=== PATIENT | female | born 2000 | race Caucasian/White ===

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

== ENCOUNTER → 2020-01-26 | Outpatient (CLI) | payer OTHER | LOC: M WHC 15:45 | PROVIDERS: ATTEND Advanced Practice Midwife | DX: O99.212 Obesity complicating pregnancy, second trimester (principal); Z53.9 Procedure and treatment not carried out, unspecified reason ==

== ENCOUNTER → 2020-02-16 | Outpatient (CLI) | payer OTHER ==
--- NOTE | 2020-02-16 19:30 | REP ---
Clinical: Anatomical evaluation. Comparison: 11/22/2019 . Findings: Examination demonstrates a single live intrauterine in transverse presentation. motion is identified by technologist. Placenta is noted anterior and grade I without evidence for placenta previa or abruption. Amniotic fluid volume is normal. Cervix measures 4.0 cm in length and appears closed. No evidence for nuchal cord. Gestational age by LMP 19 weeks 0 days with KELLY 07/12/2020 . Gestational age by current measurements 19 weeks 0 days with KELLY 07/12/2020 . FHR equals 161 beats per minute. BPD 4.1 cm 18 weeks 4 days HC 16.1 cm 18 weeks 6 days AC 13.9 cm 19 weeks 2 days FL 3.2 cm 20 weeks 0 days HL 3.2 cm 20 weeks 4 days HC/AC ratio 1.16 Estimated weight 293 grams ( 64th percentile). Anatomical assessment demonstrates normal structures including cranium, choroid plexus, cavum, cerebellum/posterior fossa, lungs, four-chamber heart/ventricular outflow tracts, diaphragm, stomach, cord insertion/three-vessel cord, kidneys/bladder, spine, and extremities. Limited evaluation of the facial features due to positioning. Echogenic focus in the left cardiac ventricle likely prominent chordae tendineae. Impression: 1. Single live intrauterine demonstrating appropriate interval growth. 2. Hypoechoic ovoid structure in the placenta measuring 2.1 x 1.0 x 1.4 cm which may represent venous hoang. 3. Limited evaluation of the facial features and prominent chordae tendineae may warrant reevaluation and follow-up.
== END ==
LOC: M WHC 15:00
PROVIDERS: ATTEND Advanced Practice Midwife
DX: O99.212 Obesity complicating pregnancy, second trimester (principal); Z3A.19 19 weeks gestation of pregnancy

== ENCOUNTER → 2020-02-29 | Outpatient (CLI) | payer OTHER ==
--- NOTE | 2020-02-29 23:55 | REP ---
REASON: Followup anatomy. Multiple ultrasonographic images of the gravid uterus show a single living intrauterine gestation in the head to maternal right position. Doppler interrogation of the heart shows a heart rate of 144 beats per minute. Placenta is anterior and not low lying. The cervix measures 3.5 cm in length, closed. The subjective amniotic fluid volume within normal limits. Once again, there is an unchanged hypoechoic structure seen near the cord insertion, which measures 2.4 x 0.9 x 2.1 cm. CHART: BPD 5.0 cm = 21 weeks 2 days HC 18.8 cm = 21 weeks 0 days AC 16.7 cm = 21 weeks 5 days FL 3.6 cm = 21 weeks 3 days The estimated weight is 430 grams, which is at the 68th percentile for a 20-week 6-day gestational age. upper lip was seen to be within normal limits. IMPRESSION: Single living intrauterine gestation, as described above, with an estimated gestational age of 21 weeks 1 day via composite criteria and an estimated date of delivery of 07/10/2020 by today's exam. No anomalies were detected. The hypoechoic area seen adjacent to the cord insertion likely represents a venous hoang. It is unchanged. Continue followup is suggested.
== END ==
LOC: M WHC 15:39
PROVIDERS: ATTEND Advanced Practice Midwife
DX: Z34.02 Encounter for supervision of normal first pregnancy, second trimester (principal); Z36.2 Encounter for other antenatal screening follow-up; Z3A.21 21 weeks gestation of pregnancy

== ENCOUNTER → 2020-05-17 | Outpatient (CLI) | payer OTHER ==
[~2020-05-17] MED LIST changes: +PRENTAB9 PO
[2020-05-17 19:11] LABS: HEMOGLOBIN 10.7 g/dl (12.0-15.5); MEAN CORPUSCULAR HEMOGLOBIN 27.1 pg (27.0-33.0); MEAN CORPUSCULAR HGB CONC 31.5 g/dl (32.0-36.5); MEAN CORPUSCULAR VOLUME 86.1 fl (80.0-96.0); PLATELET COUNT, AUTOMATED 214 10^3/uL (150-450); RED BLOOD COUNT 3.95 10^6/uL (4.00-5.40); WHITE BLOOD COUNT 10.3 10^3/uL (4.0-10.0)
== END ==
LOC: M PLALAB 13:00
PROVIDERS: ATTEND Advanced Practice Midwife
DX: Z34.83 Encounter for supervision of other normal pregnancy, third trimester (principal); Z36.89 Encounter for other specified antenatal screening

== ENCOUNTER → 2020-06-14 | Outpatient (REF) | payer OTHER | LOC: M SFHCWAGY 17:20 | PROVIDERS: ATTEND Advanced Practice Midwife | DX: Z34.03 Encounter for supervision of normal first pregnancy, third trimester (principal); Z3A.00 Weeks of gestation of pregnancy not specified ==

== ENCOUNTER 2020-07-13 08:07 | Inpatient (IN) | payer OTHER ==
[2020-07-13] VITALS (28 sets, daily range): BP systolic 118–140; BP diastolic 58–98
[~2020-07-13] VITALS: Ht 167.6 cm; Wt 129.0 kg
[~2020-07-13 08:07] MED LIST changes: -PRENTAB9 PO
[2020-07-13] MEDS ORDERED: LACTATED RINGER'S 1000 ML IV STA (08:27)
[2020-07-13] MEDS ORDERED: PRENTAB9 PO (08:30)
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
[2020-07-13] MEDS ORDERED: miSOPROStol 50 MCG 1/2 TAB (S0191) PO ONE ×2 (09:45→14:30)
[2020-07-13 10:01] LABS: HEMATOCRIT 34.1 % (36.0-47.0); HEMOGLOBIN 10.8 g/dl (12.0-15.5); MEAN CORPUSCULAR HEMOGLOBIN 26.7 pg (27.0-33.0); MEAN CORPUSCULAR HGB CONC 31.7 g/dl (32.0-36.5); MEAN CORPUSCULAR VOLUME 84.2 fl (80.0-96.0); PLATELET COUNT, AUTOMATED 208 10^3/uL (150-450); RED BLOOD COUNT 4.05 10^6/uL (4.00-5.40); WHITE BLOOD COUNT 7.5 10^3/uL (4.0-10.0)
--- NOTE | 2020-07-13 14:33 | IPNPDOC ---
Text Note Date of Service The patient was seen on 07/13/20. NOTE Progress Mild irregular UC not perceived by patient Cat I tracing SVE /-[address] cook's catheter. Procedure discontinued due to patient inability to tolerate sensations. Repeat misoprostol. Will attempts cook's again in 4 hours. VS,Fishbone, I+O VS, Fishbone, I+O Laboratory Tests 07/13/20 09:37 Vital Signs Date Time Temp Pulse Resp B/P (MAP) Pulse Ox O2 Delivery O2 Flow Rate FiO2 07/13/20 10:48 92 16 122/59 (80) 07/13/20 08:26 97.8 Dee Dee Calloway CNM Jul 13, 2020 14:33
[2020-07-13] MEDS: LR 1,000 ML IV SCH (18:43)
--- NOTE | 2020-07-13 18:43 | IPNPDOC ---
Text Note Date of Service The patient was seen on 07/13/20. NOTE Progress Pt and mother have decided to request epidural for pain management for labor. Reviewed process of insertion and administration. Will start low dose pitocin and recheck dilation once comfortable. Consider cooks catheter pending dilation. Cat I tracing. Mild irregular UC. VS,Fishbone, I+O VS, Fishbone, I+O Laboratory Tests 07/13/20 09:37 Vital Signs Date Time Temp Pulse Resp B/P (MAP) Pulse Ox O2 Delivery O2 Flow Rate FiO2 07/13/20 14:59 97.1 105 128/84 (99) 07/13/20 12:50 16 Dee Dee Calloway CNM Jul 13, 2020 18:43
[2020-07-13] MEDS ORDERED: OXYTOCIN DRIP 30 UNITS in IV 1 EA IV SCH (18:45)
[2020-07-13 19:38] LABS: AMPHETAMINES URINE REFLEX NEGATIVE (NEGATIVE); BARBITURATES URINE REFLEX NEGATIVE (NEGATIVE); BENZODIAZEPINES URINE REFLEX NEGATIVE (NEGATIVE); CANNABINOIDS URINE REFLEX NEGATIVE (NEGATIVE); COCAINE METABOLITE URINE REFLE NEGATIVE (NEGATIVE); METHADONE URINE REFLEX NEGATIVE (NEGATIVE); OPIATES URINE REFLEX NEGATIVE (NEGATIVE); PHENCYCLIDINE URINE REFLEX NEGATIVE (NEGATIVE)
[2020-07-13] MEDS ORDERED: FENTANYL 2MCG/ML ROPIVACAINE 0.2% IN 0.9% NACL 100ML IVBAG As Ordered ONE (20:50)
[2020-07-13] MEDS ORDERED: LACTATED RINGER'S 1000 ML IV PRN (22:45)
[2020-07-13] MEDS ORDERED: diphenhydrAMINE 50MG/ML VIAL (J1200) IV PRN (22:45)
[2020-07-13] MEDS ORDERED: NALOXONE INJ 0.4MG/1ML VIAL (J2310 PER 1MG) IV PRN (22:45)
[2020-07-13] MEDS ORDERED: EPIDURAL COMMENT XX SCH (22:45)
[2020-07-13] MEDS ORDERED: ePHEDrine SULFATE 25 MG/5 ML(5MG/ML) SYRINGE IV PRN (22:45)
[2020-07-13] MEDS: FENTANYL/ROPIVACAINE/NACL BAG 100 ML EPIDURAL SCH (22:45)
[2020-07-13] MEDS ORDERED: REFRIGERATOR IV KEYS XX PRN (22:45)
[2020-07-13] MEDS ORDERED: EPIDURAL/PCA KEYS XX PRN (22:45)
[2020-07-13] MEDS ORDERED: ONDANSETRON 4MG/2ML VIAL IV PRN (22:45)
--- NOTE | 2020-07-13 23:06 | IPNPDOC ---
Text Note Date of Service The patient was seen on 07/13/20. NOTE Progress Comfortable with epidural Pitocin @ 4mu UC Q 2 minutes, mild FH Cat I SVE 2/80/-1, midplane Cook's catheter placed without difficulty, inflated with 60cc/40cc NS Pt tolerated procedure well. VS,Fishbone, I+O VS, Fishbone, I+O Laboratory Tests 07/13/20 09:37 Vital Signs Date Time Temp Pulse Resp B/P (MAP) Pulse Ox O2 Delivery O2 Flow Rate FiO2 07/13/20 18:32 98.1 115 134/82 (99) 07/13/20 16:04 16 Dee Dee Calloway CNM Jul 13, 2020 23:06
[2020-07-14] VITALS (42 sets, daily range): BP systolic 103–148; BP diastolic 54–83
[2020-07-14] MEDS: LR 1,000 ML IV SCH ×3 (02:43→16:15)
--- NOTE | 2020-07-14 06:46 | IPNPDOC ---
Text Note Date of Service The patient was seen on 07/14/20. NOTE Progress remains comfortable with epidural Pitocin currently @ 2mu overnight UC Q 3 minutes, mild FH 145, episode of Cat II, primarily Cat I at this time SVE - cooks catheter sitting in vagina /-2, anterior Continue induction VS,Fishbone, I+O VS, Fishbone, I+O Laboratory Tests 07/13/20 09:37 Vital Signs Date Time Temp Pulse Resp B/P (MAP) Pulse Ox O2 Delivery O2 Flow Rate FiO2 07/14/20 02:21 93 126/65 (85) 07/13/20 18:32 98.1 07/13/20 16:04 16 I&O- Last 24 Hours up to 6 AM 07/14/20 06:00 Intake Total 700 ml Output Total 650 ml Balance 50 ml Dee Dee Calloway CNM Jul 14, 2020 06:46
[2020-07-14] MEDS: FENTANYL/ROPIVACAINE/NACL BAG 100 ML EPIDURAL SCH ×2 (07:45→18:00)
--- NOTE | 2020-07-14 11:48 | IPNPDOC ---
Obstetrical Progress Note Date of Service Jul 14, 2020 Subjective Pt comfortable with epidural. Has undergone successful cervical ripening with both Misoprostol and Pit/Cook balloon. No LOF/VB. Objective Vital Signs Date Time Temp Pulse Resp B/P (MAP) Pulse Ox O2 Delivery O2 Flow Rate FiO2 07/14/20 09:50 114/59 (77) 07/14/20 09:20 79 16 07/14/20 07:20 98.2 Assessment Heart Rate Tracing: Category I (short periods of Cat II. FSE and IUPC placed) Tocometer Frequency: regular, every 2-5 min. (Pit at 10mU/min) Sterile Vaginal Examination Dilation: 5 cm Effacement (%): 80% Station: -1, 0 Cervical Consistency: Soft Cervical Position: Anterior Postion/Presentation: Cephalic presentation Assessment and Plan Age: 20 : 1 Term: 1 Pre-term: 0 Abortions: 0 Livin EGA at Admission: 40.1 Status: Reassuring Group B Streptococcus: Negative Anticipate: Vaginal Delivery Additional Comments Continue with Pitocin. TERESA OTTO DO Jul 14, 2020 11:48
[2020-07-14 18:34] LABS: CORD GAS ABE A -6.4; CORD GAS ABE V -3.8; CORD GAS HCO3 A 24.2 MEQ/L; CORD GAS HCO3 V 20.8 MEQ/L; CORD GAS O2 SAT V 99.8 %; CORD GAS PCO2 V 36.5 mmHg; CORD GAS PH A 7.139 UNITS; CORD GAS PH V 7.373 UNITS; CORD GAS PO2 A 33.8 mmHg; CORD GAS PO2 V 140.3 mmHg; CORD GAS SBC A 18.5 MEQ/L; CORD GAS SBC V 21.4 MEQ/L; CORD GAS TCO2 A 26.5 MEQ/L; CORD GAS TCO2 V 21.9 MEQ/L
[2020-07-14] MEDS ORDERED: OXYTOCIN DRIP 30 UNITS in IV 1 EA IV SCH (18:49)
[2020-07-14] MEDS ORDERED: LR 1,000 ML IV SCH (18:49)
--- NOTE | 2020-07-14 18:49 | DNPDOC ---
[facility] Delivery Note Delivery Note DATE OF DELIVERY: 07/14/2020 TIME OF DELIVERY: 181 Spontaneous vaginal delivery. CORRECTIONAL OFFICER: Dr. Dean Leiva DO FACOG ANESTHESIA: Epidural. LACERATION: Second-degree ESTIMATED BLOOD LOSS: 200 mL. FINDINGS: 8 pound 6 ounce (3810g) female , Score, 8 and 9. DELIVERY SUMMARY: The active phase and second stage of labor progressed in normal fashion.. She received Pitocin augmentation throughout her labor course. The head delivered in the CORDELL position, and restituted LOT. A loose nuchal cord was noted which was reduced after delivery. The anterior shoulder delivered with gentle downward guidance and the remainder of the body delivered with ease. The baby was placed on the patient's chest. Delayed cord clamping occurred for approximately 1 minute. The cord was then doubly clamped and cut. IV Pitocin was bolused to actively manage the third stage of labor. The placenta delivered intact without any difficulty within 10 minutes of delivery. The uterine fundus was noted to be firm and 2 cm below the umbilicus. The cervix, vagina, vulva an d perineum were inspected. A second-degree laceration was noted and immediately repaired with 3-0 Vicryl in typical fashion. Excellent hemostasis was noted. Sponge, needle and instrument counts were correct per protocol. DO DENZEL Soto JONATHAN R. DO Jul 14, 2020 18:49
[2020-07-14] MEDS ORDERED: MEASLES,MUMPS,RUBELLA VACCINE INJ (MMR-II) (90707) SC SCH (19:00)
[2020-07-14] MEDS ORDERED: IBUPROFEN 600MG TAB PO PRN (19:00)
[2020-07-14] MEDS ORDERED: RHOGAM 300 MCG (1500 IU) INJ (J2790) IM SCH (19:00)
[2020-07-14] MEDS ORDERED: PROMETHAZINE 25 MG TAB PO PRN (19:00)
[2020-07-14] MEDS ORDERED: DOCUSATE SODIUM 100 MG CAP PO PRN (19:00)
[2020-07-14] MEDS ORDERED: ACETAMINOPHEN TAB 650MG DOSE (2X325MG) PO PRN (19:00)
[2020-07-14] MEDS ORDERED: ONDANSETRON 4MG/2ML VIAL IV PRN (19:00)
[2020-07-14] MEDS ORDERED: ACETAMINOPHEN 500 MG TAB PO PRN (19:00)
[2020-07-14] MEDS ORDERED: DIBUCAINE 1% OINTMENT 30GM TOP PRN (19:00)
[2020-07-14] MEDS: IBUPROFEN 800 MG TAB PO PRN (20:20)
[2020-07-15] MEDS: IBUPROFEN 800 MG TAB PO PRN ×2 (05:31→17:22)
[2020-07-15 06:00] VITALS: BP 109/58
[2020-07-15] MEDS: PRENATAL VITAMINS CHEWABLE TABLET PO SCH (08:03)
--- NOTE | 2020-07-15 10:22 | IPNPDOC ---
Progress Note Date of Service: Jul 15, 2020 Day#: 1 Progress Note SUBJECT: Status post . She has been ambulating, voiding spontaneously without issue and tolerating regular diet. Lochia decreasing/minimal. Patient is ambulating well. OBJECTIVE: VITAL SIGNS: Within normal limits, afebrile. Alert and oriented times three. Abdomen: Fundus firm at U-2. Soft, NTTP. ASSESSMENT: Status post uncomplicated spontaneous vaginal delivery. Vitals within normal limits, afebrile, hemodynamically stable with no evidence of infection. PLAN: Discharge to home tomorrow Tylenol and Motrin for pain. Routine instructions/precautions reviewed. Routine PP visit in 6 weeks in clinic. VS, I&O, 24H, Fishbone Vital Signs/I&O Vital Signs Date Time Temp Pulse Resp B/P (MAP) Pulse Ox O2 Delivery O2 Flow Rate FiO2 07/15/20 06:00 97.9 87 18 109/58 (75) I&O- Last 24 Hours up to 6 AM 07/15/20 06:00 Intake Total 6189 ml Output Total 2300 ml Balance 3889 ml Laboratory Data 24H LABS Laboratory Tests 2 07/14/20 18:28: Cord Arterial Blood pH 7.139, Cord Arterial Blood PCO2 73.0, Cord Arterial Blood PO2 33.8, Cord Arterial Blood HCO3 24.2, Cord Arterial Blood Total CO2 26.5, Cord Arterial Blood Base Excess -6.4, Cord Arterial Base Excess (Standard 18.5, Cord Arterial Bld Oxygen Saturation 59.0, Cord Venous Blood pH 7.373, Cord Venous Blood PCO2 36.5, Cord Venous Blood PO2 140.3, Cord Venous Blood HCO3 20.8, Cord Venous Blood Total CO2 21.9, Cord Venous Base Excess (Actual) -3.8, Cord Venous Base Excess (Standard) 21.4, Cord Venous Blood Oxygen Saturation 99.8 TERESA OTTO DO Jul 15, 2020 10:22
[2020-07-15 18:25] VITALS: BP 121/67
[2020-07-16] MEDS: IBUPROFEN 800 MG TAB PO PRN (05:11)
[2020-07-16 05:26] VITALS: BP 109/63
--- NOTE | 2020-07-16 08:21 | IPNPDOC ---
Progress Note Date of Service: Jul 16, 2020 Day#: 2 Progress Note SUBJECT: Status post . She has been ambulating, voiding spontaneously without issue and tolerating regular diet. Lochia decreasing/minimal. Patient is ambulating well. OBJECTIVE: VITAL SIGNS: Within normal limits, afebrile. Alert and oriented times three. Abdomen: Fundus firm at U-2. Soft, NTTP. ASSESSMENT: Status post uncomplicated spontaneous vaginal delivery. Vitals within normal limits, afebrile, hemodynamically stable with no evidence of infection. PLAN: Discharge to home today. Tylenol and Motrin for pain. Routine instructions/precautions reviewed. Routine PP visit in 6 weeks in clinic. VS, I&O, 24H, Fishbone Vital Signs/I&O Vital Signs Date Time Temp Pulse Resp B/P (MAP) Pulse Ox O2 Delivery O2 Flow Rate FiO2 07/16/20 05:26 97.9 74 16 109/63 (78) 97 Room Air TERESA OTTO DO Jul 16, 2020 08:21
[2020-07-16] MEDS: PRENATAL VITAMINS CHEWABLE TABLET PO SCH (09:35)
== END 2020-07-16 12:00 | disposition home or self-care (01) | DRG 560 ==
LOC: M LDI 08:07 → M OBS 07-14 20:20
PROVIDERS: ADMIT Advanced Practice Midwife; ATTEND Obstetrics & Gynecology
PROC: 3E0P7GC Introduction of Other Therapeutic Substance into Female Reproductive, Via Natural or Artificial Opening (ICD-10-PCS; 2020-07-13)
PROC: 10E0XZZ Delivery of Products of Conception, External Approach (ICD-10-PCS; principal; 2020-07-14)
PROC: 0KQM0ZZ Repair Perineum Muscle, Open Approach (ICD-10-PCS; 2020-07-14)
DX: O48.0 Post-term pregnancy (principal); Z3A.40 40 weeks gestation of pregnancy; O69.81X0 Labor and delivery complicated by cord around neck, without compression, not applicable or unspecified; O70.1 Second degree perineal laceration during delivery; Z37.0 Single live birth

== ENCOUNTER 2020-12-24 02:05 | Emergency (ER) | payer MEDICAID, OTHER ==
[~2020-12-24] VITALS: Ht 162.6 cm; Wt 127.3 kg
[~2020-12-24 02:05] MED LIST changes: +BUPR150T12 PO; -BUPR150T3 PO; +GABA-282 PO; -GABA-843 PO; +PRENTAB9 PO
[2020-12-24 03:25] LABS: HEMATOCRIT 40.2 % (36.0-47.0); HEMOGLOBIN 12.7 g/dl (12.0-15.5); MEAN CORPUSCULAR HEMOGLOBIN 27.5 pg (27.0-33.0); MEAN CORPUSCULAR HGB CONC 31.6 g/dl (32.0-36.5); PLATELET COUNT, AUTOMATED 183 10^3/uL (150-450); RED BLOOD COUNT 4.62 10^6/uL (4.00-5.40); WHITE BLOOD COUNT 7.3 10^3/uL (4.0-10.0)
[2020-12-24 04:03] LABS: ACETAMINOPHEN LEVEL < 2.0 UG/ML (10.0-30.0); ALBUMIN 3.8 GM/DL (3.2-5.2); ALT/SGPT 20 U/L (12-78); BILIRUBIN,DIRECT 0.1 MG/DL (0.0-0.2); BILIRUBIN,TOTAL 0.4 MG/DL (0.2-1.0); BLOOD UREA NITROGEN 10 MG/DL (7-18); CALCIUM LEVEL 8.2 MG/DL (8.5-10.1); CARBON DIOXIDE LEVEL 26 MEQ/L (21-32); CHLORIDE LEVEL 112 MEQ/L (98-107); CREATININE FOR GFR 0.59 MG/DL (0.55-1.30); ETHYL ALCOHOL (ETHANOL) < 0.003 % (0.000-0.010); GLUCOSE, FASTING 90 MG/DL (70-100); SALICYLATE LEVEL < 1.7 MG/DL (5.0-30.0); SODIUM LEVEL 142 MEQ/L (136-145); TOTAL PROTEIN 6.8 GM/DL (6.4-8.2)
[2020-12-24 05:33] LABS: AMPHETAMINES LEVEL URINE NEGATIVE (NEGATIVE); BARBITURATES URINE NEGATIVE (NEGATIVE); BENZODIAZEPINES URINE NEGATIVE (NEGATIVE); CANNABINOIDS URINE NEGATIVE (NEGATIVE); COCAINE METABOLITE URINE NEGATIVE (NEGATIVE); METHADONE URINE NEGATIVE (NEGATIVE); OPIATES URINE NEGATIVE (NEGATIVE); PHENCYCLIDINE URINE NEGATIVE (NEGATIVE)
[2020-12-24 17:14] LABS: RSV AMPLIFICATION NEGATIVE (NEGATIVE)
[2020-12-24 18:50] VITALS: BP 134/78
--- NOTE | 2020-12-25 17:46 | ECGEPIP ---
[facility] - ED Test Date: 2020-12-24 Pat Name: MYRON SALINASANGI Department: Room: - Gender: Female Director Cardiology: : 2000 Requested By: HOANG OSUNA Order Number: [id number] Reading MD: Funmilayo Rae Measurements Intervals [place] Rate: 58 P: 2 MO: 126 QRS: 44 QRSD: 98 T: 32 QT: 416 QTc: 408 Interpretive Statements Sinus bradycardia with sinus arrhythmia NSTTW abnormalities compared 11/29/18 Electronically Signed on 12-25-2020 17:46:21 EDT by Funmilayo Rae
== END 2020-12-24 18:53 ==
LOC: M ED 02:05
DX: F60.3 Borderline personality disorder (principal); R45.851 Suicidal ideations; F32.9 Major depressive disorder, single episode, unspecified; R00.1 Bradycardia, unspecified; I49.9 Cardiac arrhythmia, unspecified; J45.909 Unspecified asthma, uncomplicated; Z91.14 Patient's other noncompliance with medication regimen

== ENCOUNTER 2021-04-22 22:11 | Inpatient (IN) | payer MEDICAID, OTHER ==
[~2021-04-22] VITALS: Ht 167.6 cm; Wt 109.9 kg
[2021-04-22 22:57] LABS: HEMATOCRIT 41.4 % (36.0-47.0); HEMOGLOBIN 13.9 g/dl (12.0-15.5); MEAN CORPUSCULAR HGB CONC 33.6 g/dl (32.0-36.5); MEAN CORPUSCULAR VOLUME 83.5 fl (80.0-96.0); PLATELET COUNT, AUTOMATED 258 10^3/uL (150-450); RED BLOOD COUNT 4.96 10^6/uL (4.00-5.40); WHITE BLOOD COUNT 7.6 10^3/uL (4.0-10.0)
[2021-04-22 23:20] LABS: AMPHETAMINES LEVEL URINE NEGATIVE (NEGATIVE); BARBITURATES URINE NEGATIVE (NEGATIVE); BENZODIAZEPINES URINE NEGATIVE (NEGATIVE); CANNABINOIDS URINE POSITIVE (NEGATIVE); COCAINE METABOLITE URINE NEGATIVE (NEGATIVE); METHADONE URINE NEGATIVE (NEGATIVE); OPIATES URINE NEGATIVE (NEGATIVE); PHENCYCLIDINE URINE NEGATIVE (NEGATIVE)
[2021-04-23 00:02] LABS: ACETAMINOPHEN LEVEL < 2.0 UG/ML (10.0-30.0); ALBUMIN 4.1 GM/DL (3.2-5.2); ALT/SGPT 21 U/L (12-78); BILIRUBIN,DIRECT 0.1 MG/DL (0.0-0.2); BILIRUBIN,TOTAL 0.3 MG/DL (0.2-1.0); BLOOD UREA NITROGEN 11 MG/DL (7-18); CALCIUM LEVEL 8.6 MG/DL (8.5-10.1); CARBON DIOXIDE LEVEL 22 MEQ/L (21-32); CHLORIDE LEVEL 112 MEQ/L (98-107); CREATININE FOR GFR 0.78 MG/DL (0.55-1.30); ETHYL ALCOHOL (ETHANOL) < 0.003 % (0.000-0.010); GLUCOSE, FASTING 91 MG/DL (70-100); HCG, SERUM QUALITATIVE NEGATIVE (NEGATIVE); POTASSIUM SERUM 4.1 MEQ/L (3.5-5.1); SALICYLATE LEVEL 1.8 MG/DL (5.0-30.0); SODIUM LEVEL 142 MEQ/L (136-145); TOTAL PROTEIN 7.2 GM/DL (6.4-8.2)
[2021-04-23] MEDS ORDERED: HOME MED LIST COMPLETE! XX SCH (00:40)
[2021-04-23 01:30] LABS: RSV AMPLIFICATION NEGATIVE (NEGATIVE)
[2021-04-23] MEDS ORDERED: MOM 30ML SUSPENSION UDC PO PRN (01:45)
[2021-04-23] MEDS ORDERED: MAALOX 30 ML SUSP *UDC PO PRN (01:45)
[2021-04-23] MEDS ORDERED: ACETAMINOPHEN TAB 650MG DOSE (2X325MG) PO PRN (01:45)
[2021-04-23] MEDS ORDERED: OLANZapine ORAL DISINTEGRATING TAB 5MG PO PRN (01:45)
[2021-04-23] MEDS ORDERED: traZODone 50 MG TAB PO PRN (01:45)
[2021-04-23] MEDS: NICOTINE 21MG/24HR 1 EA TRANSDERMAL TD SCH (10:38)
--- NOTE | 2021-04-23 14:08 | MHHPEPDOC ---
General Date Of Admission: Apr 22, 2021 Legal Status: 9.39 Chief Complaint "I don't want to be here, I don't even know why I am here.". History of Present Illness HISTORY OF THE PRESENT ILLNESS: Patient is a 20 -year-old single, unemployed , domiciled, , female, who reports "I do not want to be here, I do not know why I am here. Nothing was really going to happen." Patient is a 9[facility] to [facility] after she called a friend who is with another friend, patient stated to her friend/roommate that she had a knife and that she would kill herself. The friend being not in front of her called the police after she had threatened to harm herself, reportedly she stated that she was going to kill her self on or before her birthday. Patient states that she hurts herself every year on her birthday. Appears to be angry with her friend who she reports is often joking about their self harm gestures. States that she and her joke about their coping mechanisms. She is very irritable guarded in mildly hostile in the interview. States several times, "I do not want to be here. " She states that she was recently hospitalized in [place] in December 2020 following substance induced mood disorder. She reports a long history of psychiatric hospitalizations and illnesses. She states that her mother has Munchhausen's by proxy, "I had to be taken out of class every week for therapy but my sister did not because my mother is crazy. And I had to take all kinds of medications because she said I needed it. But I only had ADHD" Patient reports diagnoses of depression, anxiety, ADHD, borderline personality bipolar, CPTSD. Reportedly stopped talking Wellbutrin recently. PER ED REPORT: Pt brought to ED after her friend called 911, pt reportedly called friend and told her she would kill herself and had a knife. PT was apparently upset about her upcoming birthday, stated she would kill herself sometime "before my birthday". PT is initially irritable and guarded in ED, poor eye contact, very guarded and evasive, repeating several times "I'm fine I just wanna go home", pt adds "I'm here because my friend narced on me". PT provides little info, states she lives alone and has admittedly not been compliant with medications or outpt tx, has several prior psych admissions, also prior suicide attempt by overdose. Psychiatric Review of Systems Depression (2 or more weeks): depressed mood, suicidal thoughts Jolie (4 or more days of): irritable/elevated mood, expansive mood, denies Psychosis: denies PTSD: history of trauma Anxiety: gen/non-specific anxiety Past Psychiatric History Previous Psychiatric Diagnosis: depression, anxiety, ADHD, borderline personality bipolar, CPTSD Previous Psychiatric Admissions: Multiple admissions to [facility] last hospitalization December 2020 at [place]. Suicide Attempts: history of overdose, history of Tylenol overdose Psychiatric Follow-up: No current therapist or provider. Psychiatric medications: No current medication. Past Medical History Head Injury: No Seizures: No Hospitalizations: Yes Surgeries: No Addiction History nicotine Social History Childhood: Reports a very traumatic childhood, states her mother had possible Munchhausen's disorder by proxy, she [facility] Abuse/Trauma: CPTSD. Current Living Situation: Lives alone, unclear whether or not she has a roommate Education: Unknown. Employment: Unemployed. Social Support: Friends/roommate. Legal: None. Marital: Single. Mental Status Examination General Appearance: disheveled, appears stated age, hospital scubs/clothing Build: overweight Demeanor: hostile, mistrustful, guarded Eye Contact: avoidant Activity: agitated Behavior: withdrawn Speech: clear, other (Angry) Mood: anxious, irritable Affect: flat, labile Thought Process: logical/linear Thought Content (Delusions): none reported Thought Content (Other): guarded Thought Content (Aggressive): none reported Perception (Hallucinations): none reported Perception (Other): none reported Cognition (Impairment of): none reported Cognition(Intelligence Est.): borderline Oriented: Awake, Alert, Oriented times three Insight: fair, poor Judgment: Fair, Poor Psychosis: Denies Diagnoses Unspecified depressive disorder A-FIB/CHADSVASC A-FIB History Current/History of A-Fib/PAF?: No Current PO Anticoag Therapy: No Assessment Patient is a 20 year old Single, Unemployed, Domiciled, Female who was brought to [facility] after she called her friend (the friend was with another friend) and stated that she had a knife and was doing to hurt herself before her birthday. Patient reports no stressor or trigger but reports a diagnosis of Bipolar, Borderline personality disorder, ADHD, PTSD, History of Cannabis Use, History of Tobacco Use, ODD per hx. Patient is extremely irritable and hostile in the interview and displaying symptoms of Emotional Dysregulation. Patient demands to be discharged to home, states that she is not suicidal at this time. She is reporting "Borderline Personality Disorder" and appears to be purposefully being hostile and irritable during psychiatric interview. According to her last admission, she was disengaged in the treatment and did not participate in her treatment care. Patient will probably be discharged later in the week as she admits to a long history of poor compliance in inpatient psychiatry and outpatient services and it may be counter-productive to keep patient inpatient when she is not willing to take medications or utilize any of the supportive therapies. Initial Treatment Plan 1. Patient was admitted on a [9.39] status. 2. Complete history was obtained. 3. With patients permission, family will be contacted and database will be expanded. 4. Patients medication regimen will be reviewed and changed accordingly. 5. Patient will be provided with protected environment. 6. Patient will be treated with individual, group, and milieu therapies. 7. Patient will receive supportive psych-education. 8. Discharge planning will commence immediately. 9. Outpatient follow-up treatment will be strongly recommended. 10. The initial treatment plan will focus initially on: * Depression. * Risk for suicide. ESTIMATED LENGTH OF STAY: 1-3 DAYS. TIME SPENT COUNSELING AND COORDINATING INITIAL CARE: 60 minutes. N/A-No Antipsychotics Vital Signs Vital Signs Date Time Temp Pulse Resp B/P (MAP) Pulse Ox O2 Delivery O2 Flow Rate FiO2 04/22/21 23:34 97.5 69 18 105/63 (77) 100 Room Air Laboratory Data 24H Labs Laboratory Tests 2 04/22/21 22:32: Nucleated Red Blood Cells % (auto) 0.0, Anion Gap 8, Calcium Level 8.6, Total Bilirubin 0.3, Direct Bilirubin 0.1, Aspartate Amino Transf (AST/SGOT) 17, Alanine Aminotransferase (ALT/SGPT) 21, Alkaline Phosphatase 85, Total Protein 7.2, Albumin 4.1, Albumin/Globulin Ratio 1.3, Thyroid Stimulating Hormone (TSH) 2.960, Human Chorionic Gonadotropin, Qual NEGATIVE, Salicylates Level 1.8L, Urine Opiates Screen NEGATIVE, Urine Methadone Screen NEGATIVE, Acetaminophen Level < 2.0L, Urine Barbiturates Screen NEGATIVE, Urine Phencyclidine Screen NEGATIVE, Urine Amphetamines Screen NEGATIVE, Urine Benzodiazepines Screen NEGATIVE, Urine Cocaine Metabolite Screen NEGATIVE, Urine Cannabinoids Screen POSITIVEH, Ethyl Alcohol Level < 0.003 04/23/21 00:45: Coronavirus (COVID-19)(PCR) NEGATIVE, Influenza Type A (RT-PCR) NEGATIVE, Influenza Type B (RT-PCR) NEGATIVE, Respiratory Syncytial Virus (PCR) NEGATIVE CBC/BMP Laboratory Tests 04/22/21 22:32 Medications Scheduled Nicotine (Nicotine Patch) 21 Mg Patch.td24, 1 PATCH TD DAILY for Nicotine Withdrawal Allergies Coded Allergies: No Known Allergies (Unverified , 07/13/20) DAPHNE SOOD NP Apr 23, 2021 09:29
[2021-04-23 16:03] VITALS: BP 105/68
--- NOTE | 2021-04-23 18:39 | HPEPDOC ---
General Date of Admission Apr 23, 2021 at 02:25 Date of Service: Apr 23, 2021 Primary Care Physician: JOSE WALLACE M.D. History of Present Illness 20-year-old female with no significant past medical history presented reportedly for suicidal ideations. Patient report " friend thought I was suicidal, but I am not" when asked why she was here. She denies headaches, chest pain, shortness of breath, abdominal pain, nausea, vomiting, problems with urination, and bowel movements Home Medications No Active Prescriptions or Reported Meds Allergies Coded Allergies: No Known Allergies (Unverified , 07/13/20) Past Medical History Medical History None reported by patient. Surgical History None reported by patient Family History Significant Family History: No pertinent family hx Social History * Smoker: other (Vapes daily) Alcohol: Denies Drugs: marijuana ("Occasionally") Apparently lives home alone A-FIB/CHADSVASC A-FIB History Current/History of A-Fib/PAF?: No Review of Systems Other systems 10 point review of system was negative except for what is noted in the HPI. Physical Examination General Exam: Positive: Alert, Cooperative, No Acute Distress Eye Exam: Positive: PERRLA, Conjunctiva & lids normal, EOMI ENT Exam: Positive: Mucous membr. moist/pink, Pharynx Normal Neck Exam: Positive: Supple; Negative: JVD, thyromegaly Chest Exam: Positive: Clear to auscultation, Normal air movement; Negative: Wheezing Heart Exam: Positive: Rate Normal, Normal S1, Normal S2; Negative: Tachycardic, Bradycardic, Murmurs Abdomen Exam: Positive: Normal bowel sounds, Soft; Negative: Tenderness, Hepatospenomegaly Extremity Exam: Negative: Cyanosis, Edema Neuro Exam: Positive: Normal Gait, Normal Speech Vital Signs Vital Signs Date Time Temp Pulse Resp B/P (MAP) Pulse Ox O2 Delivery O2 Flow Rate FiO2 04/23/21 16:03 97.9 96 17 105/68 (80) 98 Room Air Laboratory Data Labs 24H Laboratory Tests 2 04/22/21 22:32: Nucleated Red Blood Cells % (auto) 0.0, Anion Gap 8, Calcium Level 8.6, Total Bilirubin 0.3, Direct Bilirubin 0.1, Aspartate Amino Transf (AST/SGOT) 17, Alanine Aminotransferase (ALT/SGPT) 21, Alkaline Phosphatase 85, Total Protein 7.2, Albumin 4.1, Albumin/Globulin Ratio 1.3, Thyroid Stimulating Hormone (TSH) 2.960, Human Chorionic Gonadotropin, Qual NEGATIVE, Salicylates Level 1.8L, Urine Opiates Screen NEGATIVE, Urine Methadone Screen NEGATIVE, Acetaminophen Level < 2.0L, Urine Barbiturates Screen NEGATIVE, Urine Phencyclidine Screen NEGATIVE, Urine Amphetamines Screen NEGATIVE, Urine Benzodiazepines Screen NEGATIVE, Urine Cocaine Metabolite Screen NEGATIVE, Urine Cannabinoids Screen POSITIVEH, Ethyl Alcohol Level < 0.003 04/23/21 00:45: Coronavirus (COVID-19)(PCR) NEGATIVE, Influenza Type A (RT-PCR) NEGATIVE, Influenza Type B (RT-PCR) NEGATIVE, Respiratory Syncytial Virus (PCR) NEGATIVE CBC/BMP Laboratory Tests 04/22/21 22:32 Assessment/Plan 20-year-old female presented to emergency department for reported suicidal ideations. #Unspecified depressive disorder -With possible suicidal ideations; care per psychiatry team. #DVT -Encourage early ambulation Female inspector subassemblies was present throughout the duration of this history and physical examination Hospitalist service will sign off; please re-consult as required JOSE WALLACE M.D. Apr 23, 2021 17:17
[2021-04-24 06:01] VITALS: BP 131/85
[2021-04-24] MEDS: NICOTINE 21MG/24HR 1 EA TRANSDERMAL TD SCH (09:00)
[2021-04-24] MEDS ORDERED: NICO21PAT TD (09:17)
--- NOTE | 2021-04-24 11:31 | MHDSPDOC ---
[facility] Discharge Summary Discharge Summary DATE OF ADMISSION: Apr 23, 2021 at 02:25 DATE OF DISCHARGE: April 24, 2021 at 1117 DISCHARGE DIAGNOSES: 1. Unspecified Depressive Disorder 2. History of Depression 3. Unspecified Anxiety 4. ADHD 5. Per patient's report Borderline Personality Disorder REASON FOR ADMISSION: Patient is a 20 -year-old single, unemployed, domiciled, , female, who reports "I do not want to be here, I do not know why I am here. Nothing was really going to happen." Patient is a 941 to [facility] after she called a friend who is with another friend, patient stated to her friend/roommate that she had a knife and that she would kill herself. The friend being not in front of her called the police after she had threatened to harm herself, reportedly she stated that she was going to kill herself on or before her birthday. Patient states that she hurts herself every year on her birthday. Appears to be angry with her friend who she reports is often joking about their self-harm gestures. States that she and her joke about their coping mechanisms. She is very irritable guarded in mildly hostile in the interview. States several times, "I do not want to be here. She states that she was recently hospitalized in [place] in December 2020 following substance induced mood disorder. She reports a long history of psychiatric hospitalizations and illnesses. She states that her mother has Munchhausen's by proxy, "I had to be taken out of class every week for therapy but my sister did not because my mother is crazy. And I had to take all kinds of medications because she said I needed it. But I only had ADHD Patient reports diagnoses of depression, anxiety, ADHD, borderline personality bipolar, CPTSD. Reportedly stopped talking Wellbutrin recently. PER ED REPORT: Pt brought to ED after her friend called 911, pt. reportedly called friend and told her she would kill herself and had a knife. PT was apparently upset about her upcoming birthday, stated she would kill herself sometime "before my birthday". PT is initially irritable and guarded in ED, poor eye contact, very guarded and evasive, repeating several times "I'm fine I just want to go home", pt. adds "I'm here because my friend narced on me". PT provides little info, states she lives alone and has admittedly not been compliant with medications or outpatient Tx, has several prior psych admissions, also prior suicide attempt by overdose. VITAL SIGNS: See below. CONSULTANTS INVOLVED: See Medical H + P by Hospitalist TREATMENT AND PROGRESS ON THE UNIT: Patient was admitted to the [facility] on a 9.39 legal status he was afforded the following treatment modalities: 1) Individual Therapy 2) Group Therapy 3) Medication Management 4) Milieu Therapy 5) Safe Environment HOSPITAL COURSE: Patient was admitted to [facility] on a 9.39 legal status. Pt refused medications and does not find them beneficial and states that she does not tolerate them well. Patient is extremely irritable and hostile in the initial interview and displaying severe symptoms of Emotional Dysregulation. Patient demanded to be discharged to home, states that she was not suicidal when she was interviewed in the emergency department. She is reporting "Borderline Personality Disorder" and appeared to be purposefully being hostile and irritable during psychiatric interview. According to her last admission, she was disengaged in the treatment and did not participate in her treatment care. Patient admits to a long history of poor compliance in inpatient psychiatry and outpatient services and it may be counter-productive to keep patient inpatient when she is not willing to take medications or utilize any of the supportive therapies. Mood, anxiety, and suicidal ideations improved with her overnight admission. Pt was isolative and withdrawn during her stay. Pts symptoms appear to be improved. On day of discharge she denied depression, anxiety, insomnia, SI/HI, hallucinations, delusions. Pt was discharged home with follow up to [facility]. States that she will be cleaning her apartment this afternoon and [place] the [place]. Pt felt safe for discharge. DISCHARGE ASSESSMENT: In today's interview, patient is alert and oriented, pts dress is appropriate. Hygiene and grooming is well-kempt. She is more pleasant and engaged in the interview today. Denies depression and anxiety. Denies suicidal and homicidal ideation, planning or intent. Denies and is not observed with naga, psychotic symptoms of delusions, bizarre thinking, obsessions, paranoia, ruminations illogical thoughts, flight of ideas or having poor insight and judgement. Patient has normal mentation, declines further hospitalization on a voluntary status and meets criteria for discharge today. Patient encouraged to return to hospital if symptoms worsen or change and encouraged to call unit if he/she/they needs to speak to provider for questions regarding medications or care. MENTAL STATUS EXAMINATION ON DISCHARGE: Patient is a 20 -year-old single, unemployed, domiciled, , female, who was a 941 to [facility] after she called a friend who is with another friend, patient stated to her friend/roommate that she had a knife and that she would kill herself. Speech: Is fluid, conversant, normal rate, tone and volume Language skills are intact Thought processes including: linear and goal oriented Thought content: denies depression and anxiety. Denies suicidal/homicidal ideation, planning or intent. Abstract reasoning, and computation: fair Description of associations: denies, none observed Description of abnormal or psychotic thoughts: denies, none observed. Judgment: fair Insight: fair Orientation: alert and oriented to person, place, time and situation Recent and remote memory: intact Attention span and concentration: good Language: expansive Fund of knowledge: average Mood: Euthymic Mood Affect: Constricted MEDICATIONS ON DISCHARGE: See Medication Reconciliation PLAN/FOLLOWUP ARRANGEMENTS: [facility] The amount of time spent in the coordination of care for this patient was approximately 25 minutes. ETOH/Disorder Med Rx ETOH/DRUG DISORDER RX: N/A Vital Signs/I&Os Vital Signs Date Time Temp Pulse Resp B/P (MAP) Pulse Ox O2 Delivery O2 Flow Rate FiO2 04/24/21 06:01 98.1 89 14 131/85 (100) 96 Room Air Medications Scheduled Nicotine (Nicotine Patch) 21 Mg Patch.td24, 1 PATCH TD DAILY for Nicotine Withdrawal, #7 Allergies Coded Allergies: No Known Allergies (Unverified , 07/13/20) DAPHNE SOOD SIGN ERECTOR AND REPAIRER Apr 24, 2021 11:31
== END 2021-04-24 11:40 | disposition home or self-care (01) | DRG 754 ==
LOC: M ED 22:11 → UNDOADMIN 04-23 02:25 → M PSY 04-23 02:25
PROVIDERS: ADMIT Psychiatry & Neurology Psychiatry; ATTEND Psychiatry & Neurology Psychiatry
DX: F32.9 Major depressive disorder, single episode, unspecified (principal); R45.851 Suicidal ideations; Z20.822 Contact with and (suspected) exposure to COVID-19; F17.210 Nicotine dependence, cigarettes, uncomplicated; F41.9 Anxiety disorder, unspecified; F60.3 Borderline personality disorder; F90.9 Attention-deficit hyperactivity disorder, unspecified type; Z91.5 Personal history of self-harm

== ENCOUNTER 2021-10-10 03:43 | Inpatient (IN) | payer MEDICAID, OTHER ==
[~2021-10-10] VITALS: Ht 170.2 cm; Wt 104.5 kg
[2021-10-10] MEDS ORDERED: NS 1,000 ML IV ONE (04:00)
[2021-10-10 04:18] LABS: BASO # 0.1 10^3/uL (0.0-0.2); BASO % 0.7 % (0.0-1.0); EOS # 0.1 10^3/uL (0.0-0.5); EOS % 1.3 % (0.0-3.0); HEMATOCRIT 42.5 % (36.0-47.0); HEMOGLOBIN 14.2 g/dl (12.0-15.5); LYMPH # 3.2 10^3/uL (1.5-5.0); LYMPH % 38.9 % (24.0-44.0); MEAN CORPUSCULAR HEMOGLOBIN 28.4 pg (27.0-33.0); MEAN CORPUSCULAR HGB CONC 33.4 g/dl (32.0-36.5); MONO # 0.8 10^3/uL (0.0-0.8); MONO % 9.1 % (2.0-8.0); NEUTROPHILS # 4.1 10^3/uL (1.5-8.5); NEUTROPHILS % 49.9 % (36.0-66.0); PLATELET COUNT, AUTOMATED 267 10^3/uL (150-450); WHITE BLOOD COUNT 8.3 10^3/uL (4.0-10.0)
[2021-10-10 04:58] LABS: ACETAMINOPHEN LEVEL < 2.0 UG/ML (10.0-30.0); ALBUMIN 4.1 GM/DL (3.2-5.2); ALT/SGPT 15 U/L (12-78); BILIRUBIN,DIRECT 0.1 MG/DL (0.0-0.2); BILIRUBIN,TOTAL 0.5 MG/DL (0.2-1.0); BLOOD UREA NITROGEN 11 MG/DL (7-18); CALCIUM LEVEL 9.1 MG/DL (8.5-10.1); CARBON DIOXIDE LEVEL 26 MEQ/L (21-32); CHLORIDE LEVEL 111 MEQ/L (98-107); CREATININE FOR GFR 0.77 MG/DL (0.55-1.30); ETHYL ALCOHOL (ETHANOL) < 0.003 % (0.000-0.010); GLOMERULAR FILTRATION RATE > 60.0 (>60); GLUCOSE, FASTING 98 MG/DL (70-100); POTASSIUM SERUM 3.9 MEQ/L (3.5-5.1); SALICYLATE LEVEL < 1.7 MG/DL (5.0-30.0); SODIUM LEVEL 144 MEQ/L (136-145); TOTAL PROTEIN 7.4 GM/DL (6.4-8.2)
[2021-10-10 05:04] LABS: AMPHETAMINES LEVEL URINE NEGATIVE (NEGATIVE); BARBITURATES URINE NEGATIVE (NEGATIVE); BENZODIAZEPINES URINE NEGATIVE (NEGATIVE); CANNABINOIDS URINE NEGATIVE (NEGATIVE); COCAINE METABOLITE URINE NEGATIVE (NEGATIVE); METHADONE URINE NEGATIVE (NEGATIVE); OPIATES URINE NEGATIVE (NEGATIVE); PHENCYCLIDINE URINE NEGATIVE (NEGATIVE)
[2021-10-10] MEDS ORDERED: hydrOXYzine 50 MG TAB PO ONE (14:10)
[2021-10-10] MEDS ORDERED: hydrOXYzine 50 MG TAB PO PRN (14:50)
[2021-10-10] MEDS ORDERED: OLANZapine ORAL DISINTEGRATING TAB 5MG PO PRN (14:50)
[2021-10-10] MEDS ORDERED: MOM 30ML SUSPENSION UDC PO PRN (14:50)
[2021-10-10] MEDS ORDERED: ACETAMINOPHEN TAB 650MG DOSE (2X325MG) PO PRN (14:50)
[2021-10-10] MEDS ORDERED: MAALOX 30 ML SUSP *UDC PO PRN (14:50)
[2021-10-10] MEDS ORDERED: traZODone 50 MG TAB PO PRN (14:50)
[2021-10-10 16:51] VITALS: BP 129/75
[2021-10-10 17:36] VITALS: BP 135/94
[2021-10-10 18:51] VITALS: BP 93/52
[2021-10-11 06:36] VITALS: BP 116/64
[2021-10-11] MEDS ORDERED: NICO21PAT TD (10:37)
== END 2021-10-11 13:41 | disposition home or self-care (01) | DRG 753 ==
LOC: M ED 03:43 → M ED INP 14:47 → M PSY 16:23
PROVIDERS: ADMIT Student in an Organized Health Care Education/Training Program; ATTEND Student in an Organized Health Care Education/Training Program
DX: F32.89 Other specified depressive episodes (principal); F60.3 Borderline personality disorder; F50.9 Eating disorder, unspecified; F12.10 Cannabis abuse, uncomplicated; F17.210 Nicotine dependence, cigarettes, uncomplicated; Z91.51 Personal history of suicidal behavior; Z91.52 Personal history of nonsuicidal self-harm; R00.2 Palpitations; Z20.822 Contact with and (suspected) exposure to COVID-19

== ENCOUNTER → 2022-08-05 | Outpatient (CLI) | payer OTHER ==
[2022-08-05 18:04] LABS: HEMATOCRIT 37.9 % (36.0-47.0); HEMOGLOBIN 12.6 g/dl (12.0-15.5); MEAN CORPUSCULAR HEMOGLOBIN 29.5 pg (27.0-33.0); MEAN CORPUSCULAR HGB CONC 33.2 g/dl (32.0-36.5); MEAN CORPUSCULAR VOLUME 88.8 fl (80.0-96.0); PLATELET COUNT, AUTOMATED 164 10^3/uL (150-450); RED BLOOD COUNT 4.27 10^6/uL (4.00-5.40); WHITE BLOOD COUNT 7.3 10^3/uL (4.0-10.0)
[2022-08-05 20:33] LABS: GC DNA AMPLIFICATION NEGATIVE (NEGATIVE)
[2022-08-05 22:33] LABS: HEPATITIS C VIRUS ABY INDEX < 0.8 INDEX (<0.8); HIV 1&2 SCREEN CENTAUR NEGATIVE (NEGATIVE)
== END ==
LOC: M PLALAB 14:26
PROVIDERS: ATTEND Obstetrics & Gynecology
DX: Z34.91 Encounter for supervision of normal pregnancy, unspecified, first trimester (principal)

== ENCOUNTER → 2022-09-09 | Outpatient (CLI) | payer OTHER | LOC: M WHC 10:20 | PROVIDERS: ATTEND Obstetrics & Gynecology | DX: O32.1XX0 Maternal care for breech presentation, not applicable or unspecified (principal); Z3A.21 21 weeks gestation of pregnancy ==

== ENCOUNTER → 2022-10-23 | Outpatient (CLI) | payer OTHER | LOC: M WHC 08:15 | PROVIDERS: ATTEND Advanced Practice Midwife | DX: O36.62X0 Maternal care for excessive fetal growth, second trimester, not applicable or unspecified (principal); Z3A.27 27 weeks gestation of pregnancy ==

== ENCOUNTER → 2022-11-26 | Outpatient (CLI) | payer OTHER ==
[2022-11-26 11:31] LABS: HEMATOCRIT 31.6 % (36.0-47.0); HEMOGLOBIN 10.1 g/dl (12.0-15.5); MEAN CORPUSCULAR HEMOGLOBIN 27.4 pg (27.0-33.0); MEAN CORPUSCULAR VOLUME 85.9 fl (80.0-96.0); PLATELET COUNT, AUTOMATED 169 10^3/uL (150-450); RED BLOOD COUNT 3.68 10^6/uL (4.00-5.40); WHITE BLOOD COUNT 7.1 10^3/uL (4.0-10.0)
[2022-11-26 13:17] LABS: GC DNA AMPLIFICATION NEGATIVE (NEGATIVE)
== END ==
LOC: M PLALAB 08:13
PROVIDERS: ATTEND Obstetrics & Gynecology
DX: Z34.82 Encounter for supervision of other normal pregnancy, second trimester (principal)

== ENCOUNTER → 2022-11-26 | Outpatient (CLI) | payer OTHER | LOC: M WHC 07:00 | PROVIDERS: ATTEND Obstetrics & Gynecology | DX: Z36.2 Encounter for other antenatal screening follow-up (principal); Z3A.31 31 weeks gestation of pregnancy ==

== ENCOUNTER → 2022-12-23 | Outpatient (REF) | payer OTHER | LOC: M PLALAB 13:33 | PROVIDERS: ATTEND Obstetrics & Gynecology | DX: Z34.93 Encounter for supervision of normal pregnancy, unspecified, third trimester (principal) ==

== ENCOUNTER 2022-12-24 01:48 | Outpatient (CLI) | payer OTHER ==
[~2022-12-24] VITALS: Ht 170.2 cm; Wt 122.3 kg
[2022-12-24 02:07] VITALS: BP 128/62
[2022-12-24] MEDS ORDERED: HOME MED LIST COMPLETE! XX SCH (02:35)
[2022-12-24] MEDS ORDERED: PRENTAB9 PO (02:37)
[2022-12-24 02:41] VITALS: BP 121/65
== END 2022-12-24 02:48 | disposition home or self-care (01) ==
LOC: M LDO 01:48
PROVIDERS: ATTEND Specialist
DX: O26.893 Other specified pregnancy related conditions, third trimester (principal); N89.8 Other specified noninflammatory disorders of vagina; Z3A.35 35 weeks gestation of pregnancy
CPT/HCPCS: 59025; G0463

== ENCOUNTER 2024-08-13 06:35 | Emergency (ER) | payer OTHER ==
[~2024-08-13] VITALS: Ht 170.2 cm; Wt 128.1 kg
[~2024-08-13 06:35] MED LIST changes: +ACET-683 PO; +BUPR-597 PO; -BUPR300T92 PO; +COLA100C5 PO; +ETON1VAG7 PV; +FLUO-365 PO; -FLUO20CA22 PO; +GABA-1172 PO; -GABA-282 PO; -GEOD40CA13 PO; +IBUP-1022 PO; -NUVAMIS2 PV; -ZIPR40CA11 PO; +ZIPR40CA21 PO; +ZIPR40CA27 PO
[2024-08-13] MEDS: ACETAMINOPHEN 325 MG TAB PO ONE (07:15)
[2024-08-13] MEDS ORDERED: NOXI1TAB PO (07:24)
[2024-08-13 07:38] LABS: BASO % 0.3 % (0.0-1.0); EOS # 0.2 10^3/uL (0.0-0.5); EOS % 2.7 % (0.0-3.0); HEMATOCRIT 32.4 % (36.0-47.0); HEMOGLOBIN 10.8 g/dl (12.0-15.5); LYMPH # 1.8 10^3/uL (1.5-5.0); LYMPH % 26.3 % (24.0-44.0); MEAN CORPUSCULAR HEMOGLOBIN 28.5 pg (27.0-33.0); MEAN CORPUSCULAR HGB CONC 33.3 g/dl (32.0-36.5); MEAN CORPUSCULAR VOLUME 85.5 fl (80.0-96.0); MONO # 0.4 10^3/uL (0.0-0.8); MONO % 6.1 % (2.0-8.0); NEUTROPHILS # 4.5 10^3/uL (1.5-8.5); NEUTROPHILS % 64.2 % (36.0-66.0); PLATELET COUNT, AUTOMATED 170 10^3/uL (150-450); RED BLOOD COUNT 3.79 10^6/uL (4.00-5.40)
[2024-08-13 08:04] LABS: BLOOD UREA NITROGEN 6 MG/DL (9-23); CALCIUM LEVEL 8.4 MG/DL (8.5-10.1); CARBON DIOXIDE LEVEL 22 MMOL/L (20-31); CHLORIDE LEVEL 107 MMOL/L (98-107); CREATININE FOR GFR 0.41 MG/DL (0.55-1.30); GLOMERULAR FILTRATION RATE > 60.0 (>60); GLUCOSE, FASTING 114 MG/DL (60-100); POTASSIUM SERUM 3.4 MMOL/L (3.5-5.1); SODIUM LEVEL 138 MMOL/L (136-145)
[2024-08-13 08:16] LABS: PROCALCITONIN <0.04 ng/ml
[2024-08-13 09:39] VITALS: BP 101/49; TEMP 97.7; O2SAT 97
== END 2024-08-13 09:52 | disposition home or self-care (01) ==
LOC: M ED 06:35
DX: O98.519 Other viral diseases complicating pregnancy, unspecified trimester (principal); B34.9 Viral infection, unspecified; R07.89 Other chest pain; Z3A.00 Weeks of gestation of pregnancy not specified

== ENCOUNTER → 2024-08-17 | Outpatient (CLI) | payer OTHER ==
[~2024-08-17] MED LIST changes: +NOXI1TAB PO
== END ==
LOC: M RAD 15:51
PROVIDERS: ATTEND Advanced Practice Midwife
DX: Z34.82 Encounter for supervision of other normal pregnancy, second trimester (principal); Z3A.25 25 weeks gestation of pregnancy

== ENCOUNTER 2024-09-05 22:30 | Emergency (ER) | payer OTHER ==
[~2024-09-05] VITALS: Ht 167.6 cm; Wt 129.0 kg
[2024-09-05] MEDS ORDERED: BUPR150T12 (22:38)
[2024-09-05] MEDS ORDERED: VITA200016 (22:38)
[2024-09-06] MEDS ORDERED: AZIT-12 PO (02:11)
[2024-09-06] MEDS ORDERED: PRED20TA PO (02:11)
[2024-09-06] MEDS ORDERED: VENTAER INH (02:12)
[2024-09-06] MEDS: predniSONE 20 MG TAB PO ONE (02:21)
[2024-09-06] MEDS: AZITHROMYCIN 250MG TABLET PO ONE (02:21)
[2024-09-06 02:33] VITALS: BP 128/78; TEMP 98.8; O2SAT 98
== END 2024-09-06 02:35 | disposition home or self-care (01) ==
LOC: M ED 22:30
DX: O99.512 Diseases of the respiratory system complicating pregnancy, second trimester (principal); J20.5 Acute bronchitis due to respiratory syncytial virus; Z3A.27 27 weeks gestation of pregnancy; Z79.899 Other long term (current) drug therapy
CPT/HCPCS: 87486; 87581; 87633; 87798; 99284; J7512

== ENCOUNTER → 2024-09-12 | Outpatient (CLI) | payer OTHER ==
[~2024-09-12] MED LIST changes: +AZIT-12 PO; +BUPR150T12; +PRED20TA PO; +VENTAER INH; +VITA200016
[2024-09-12 15:41] LABS: HEMOGLOBIN 11.9 g/dl (12.0-15.5); MEAN CORPUSCULAR HEMOGLOBIN 27.4 pg (27.0-33.0); MEAN CORPUSCULAR HGB CONC 32.2 g/dl (32.0-36.5); MEAN CORPUSCULAR VOLUME 85.3 fl (80.0-96.0); PLATELET COUNT, AUTOMATED 258 10^3/uL (150-450); RED BLOOD COUNT 4.34 10^6/uL (4.00-5.40); WHITE BLOOD COUNT 11.3 10^3/uL (4.0-10.0)
[2024-09-12 15:53] LABS: GLUCOSE CHALLENGE TEST 1 HOUR 66 MG/DL (LESS THAN 140)
[2024-09-12 16:28] LABS: HIV 1&2 SCREEN NEGATIVE (NEGATIVE)
[2024-09-12 16:36] LABS: HEPATITIS C VIRUS ABY INDEX 0.03 INDEX (<0.8)
== END ==
LOC: M PLALAB 12:24
PROVIDERS: ATTEND Advanced Practice Midwife
DX: Z34.82 Encounter for supervision of other normal pregnancy, second trimester (principal)

== ENCOUNTER → 2024-10-14 | Outpatient (REF) | payer OTHER ==
[2024-10-14 15:36] LABS: GC DNA AMPLIFICATION NEGATIVE (NEGATIVE)
== END ==
LOC: M PLALAB 10:21
PROVIDERS: ATTEND Advanced Practice Midwife
DX: Z34.82 Encounter for supervision of other normal pregnancy, second trimester (principal)

== ENCOUNTER → 2024-10-18 | Outpatient (CLI) | payer OTHER | LOC: M RAD 14:09 | PROVIDERS: ATTEND Nurse Practitioner Family | DX: Z34.83 Encounter for supervision of other normal pregnancy, third trimester (principal); Z3A.34 34 weeks gestation of pregnancy ==

== ENCOUNTER → 2024-11-07 | Outpatient (REF) | payer OTHER | LOC: M PLALAB 16:16 | PROVIDERS: ATTEND Nurse Practitioner Family | DX: Z34.83 Encounter for supervision of other normal pregnancy, third trimester (principal); Z3A.36 36 weeks gestation of pregnancy ==